=== PATIENT | male | born 1990 | race Caucasian/White ===

== ENCOUNTER 2020-05-25 02:58 | Emergency (ER) | payer OTHER ==
[2020-05-25 04:34] LABS: HEMOGLOBIN 14.9 gm/dl (14.0-17.5); RED BLOOD COUNT 4.86 M/UL (4.20-5.50)
[2020-05-25 05:14] LABS: BUN/CREATININE RATIO 13 (0-10)
[2020-05-25] MEDS ORDERED: IBUPROFEN600 MG PO (05:56)
[2020-05-25] MEDS ORDERED: KEFLEX500 MG PO (05:56)
== END 2020-05-25 06:09 | disposition home or self-care (01) ==
LOC: ER1 02:58
PROVIDERS: Family Medicine
DX: R50.9 Fever, unspecified (principal); R07.9 Chest pain, unspecified; M54.2 Cervicalgia; R07.0 Pain in throat; Z20.822 Contact with and (suspected) exposure to COVID-19
CPT/HCPCS: 71045; 80053; 82550; 82553; 83874; 84484; 85025; 87081; 87880; 93005; 99284; U0002